=== PATIENT | female | born 1985 | race Caucasian/White ===

== ENCOUNTER 2017-09-28 10:48 | Emergency (ER) | payer OTHER ==
--- NOTE | 2017-09-28 11:28 | ED PSYCHIATRIC COMPLAINT ---
History of Present Illness General Chief Complaint: Psychiatric Related Complaint Stated Complaint: ANXIETY, VOMITTING, AND DEPRESSION Source: patient, old records Exam Limitations: no limitations Vital Signs & Intake/Output Vital Signs & Intake/Output Vital Signs Date Time Temp Pulse Resp B/P B/P Pulse O2 O2 Flow FiO2 Mean Ox Delivery Rate 09/28 1838 98.1 66 18 114/55 98 Room Air 09/28 1636 98.2 64 18 119/69 98 Room Air 09/28 1446 98.3 70 18 123/68 99 Room Air 09/28 1105 97.0 76 22 117/69 98 Allergies Coded Allergies: MDX - Meperidine (From DEMEROL) (Severe, ANAPHYLAXIS 12/07/11) Reconcile Medications No Known Home Medications Triage Note: PER PT HX OF ANXIETY, PT REPORTS WANTS DIVORCE, CANT DEAL CRYING ALL THE TIME CANT EAT OR SLEEP AND JUST VOMITING ALL THE TIME DENIES SI/HI BUT JUST CANT COPE WITH IT ANYMORE Triage Nurses Notes Reviewed? yes : No Patient currently breastfeeds: No HPI: Patient has a history of anxiety but she stopped her medication. Patient is currently going through divorce and it is making her very anxious. Patient states it is getting to the point that she is getting nauseous and occasionally vomiting because the anxiety. Patient denies any suicidal or homicidal ideations. Patient states that she just needs something to help control his anxiety and then somebody to follow-up with. Past History Travel History Traveled to [place] past 21 day No Medical History Any Pertinent Medical History? see below for history Neurological: NONE EENT: NONE Cardiovascular: NONE Respiratory: NONE Gastrointestinal: NONE Hepatic: NONE Renal: NONE Musculoskeletal: NONE Psychiatric: anxiety Endocrine: NONE Surgical History Surgical History: non-contributory Psychosocial History Who do you live with Mother What is your primary language Nepali Tobacco Use: Current Daily Use Daily Tobacco Use Amount/Type: => 5 Cigarettes daily ETOH Use: occasional use Illicit Drug Use: denies illicit drug use Family History Hx Contributory? No Review of Systems Review of Systems Constitutional: Reports: no symptoms. EENTM: Reports: no symptoms. Respiratory: Reports: no symptoms. Cardiovascular: Reports: no symptoms. GI: Reports: see HPI, nausea, vomiting. Genitourinary: Reports: no symptoms. Musculoskeletal: Reports: no symptoms. Skin: Reports: no symptoms. Neurological/Psychological: Reports: see HPI, anxiety. Hematologic/Endocrine: Reports: no symptoms. Immunologic/Allergic: Reports: no symptoms. All Other Systems: Reviewed and Negative Physical Exam Physical Exam General Appearance: well developed/nourished, mild distress Head: atraumatic Eyes: Bilateral: PERRL, EOMI. Ears, Nose, Throat: normal pharynx, normal ENT inspection, hearing grossly normal Neck: normal inspection, supple Respiratory: normal breath sounds, chest non-tender, no respiratory distress, lungs clear Cardiovascular: regular rate/rhythm, normal peripheral pulses Gastrointestinal: normal bowel sounds, soft, non-tender Extremities: normal range of motion Neurological/Psychiatric: no motor/sensory deficits, awake, alert, anxious, oriented x 3 Appearance/Memory/Insight: appropriate appearance, appropriate insight Behavoir/Eye Contact/Speech: cooperative, normal speech, good eye contact Thoughts/Hallucinations: normal thought pattern, no apparent hallucination Skin: intact, normal color, warm/dry SAD PERSONS Done? patient not suicidal Progress Differential Diagnosis: drug intoxication, drug overdose, drug withdrawal, electrolyte abnormality Plan of Care: Orders Procedure Date/time Status Regular Diet 09/28 L Active ED CRISIS PSYCH CONSULT 09/28 1112 Active URINE 09/28 1108 Complete URINE DRUG SCREEN FOR ER ONLY 09/28 1108 Complete URINALYSIS 09/28 1108 Complete LIPASE 09/28 1108 Complete ETHANOL 09/28 1108 Complete COMPREHENSIVE METABOLIC PANEL 09/28 1108 Complete CBC WITHOUT DIFFERENTIAL 09/28 1108 Complete Laboratory Tests 09/28/17 1337: Urine Opiates Screen < 100, Methadone Screen < 40, Barbiturate Screen < 60, Ur Phencyclidine Scrn < 6.00, Amphetamines Screen < 100, U Benzodiazepines Scrn < 85, Urine Cocaine Screen < 50, Urine Cannabis Screen 78.50 H, Urinalysis LIGHT H, Urine Color YEL, Urine Clarity HAZY H, Urine pH 6.0, Ur Specific Presto >= 1.030, Urine Protein TRACE H, Urine Ketones 15 H, Urine Nitrite NEG, Urine Bilirubin NEG@ICTO, Urine Urobilinogen 0.2, Ur Leukocyte Esterase TRACE H, Ur Microscopic SEDIMENT EXAMINED, Urine RBC 1-3, Urine WBC 3-5 H, Ur Epithelial Cells MANY H, Urine Bacteria MANY H, Urine Mucus MANY H, Urine Hemoglobin NEG , Urine Glucose NEG, Urine Test NEGATIVE 09/28/17 1200: Anion Gap 13, Estimated GFR > 60, BUN/Creatinine Ratio 11.4, Glucose 92, Calcium 9.6, Total Bilirubin 1.0, AST 17, ALT 21, Alkaline Phosphatase 37, Total Protein 7.3, Albumin 4.6, Globulin 2.7, Albumin/Globulin Ratio 1.7, Lipase 56, CBC w Diff NO MAN DIFF REQ, RBC 5.06, MCV 88.6, MCH 29.7, MCHC 33.5, RDW 13.0, MPV 9.8 , Gran % 66.9, Lymphocytes % 22.7, Monocytes % 8.4, Eosinophils % 1.4, Basophils % 0.6, Absolute Granulocytes 3.7, Absolute Lymphocytes 1.2, Absolute Monocytes 0.5, Absolute Eosinophils 0.1, Absolute Basophils 0, Serum Alcohol < 10.0 Comments: Patient has been seen and pyelonephritis clinician. Patient is stable for discharge at this time. Departure Departure Disposition: HOME OR SELF CARE Condition: Stable Clinical Impression Primary Impression: Anxiety Referrals: Luis A ROB,Armando Clark (PCP/Family) Additional Instructions: Follow-up as per the recommendations of clinical nursing instructor. Return if symptoms worsen or for any concerns. Departure Forms: Customer Survey General Discharge Information Prescriptions: Current Visit Scripts No Known Home Medications
[2017-09-28 12:13] LABS: ABSOLUTE BASOPHIL COUNT 0 /CUMM (0.0-0.2); ABSOLUTE EOSINOPHIL COUNT 0.1 /CUMM (0.0-0.7); ABSOLUTE GRANULOCYTE CT 3.7 /CUMM (1.4-6.5); ABSOLUTE LYMPH COUNT 1.2 /CUMM (1.2-3.4); ABSOLUTE MONOCYTE COUNT 0.5 /CUMM (0.10-0.60); BASOPHIL % 0.6 % (0.0-2.0); EOSINOPHIL % 1.4 % (0-5); GRANULOCYTE % 66.9 % (42.2-75.2); HEMATOCRIT 44.9 % (37-47); MEAN CORPUSCULAR HGB 29.7 PG (27.0-31.0); MEAN CORPUSCULAR HGB CONC 33.5 G/DL (33.0-37.0); MEAN CORPUSCULAR VOLUME 88.6 FL (81.0-99.0); MEAN PLATELET VOLUME 9.8 FL (7.4-10.4); PLATELET COUNT 187 /CUMM (130-400); RED BLOOD CELL CT 5.06 /CUMM (4.20-5.40); WHITE BLOOD CELL COUNT 5.5 /CUMM (4.8-10.8)
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
[2017-09-28 18:38] VITALS: BP 114/55
== END 2017-09-28 19:18 ==
LOC: ERH 10:48
PROVIDERS: Physician Assistant Medical
DX: F41.9 Anxiety disorder, unspecified (principal)
CPT/HCPCS: 80307; 81001; 81025; G0463; G0480; J3101